=== PATIENT | female | born 1955 | race Caucasian/White ===

== ENCOUNTER 2020-05-31 15:18 | Inpatient (IN) | payer OTHER ==
[~2020-05-31] VITALS: Ht 157.4 cm; Wt 107.2 kg
[2020-05-31] MEDS ORDERED: ACETAMINOPHEN 500 MG TAB (TYLENOL) ONE (15:40)
[2020-05-31] MEDS ORDERED: IBUPROFEN 800 MG (MOTRIN) TAB PO ONE ×2 (15:40→15:45)
[2020-05-31] MEDS ORDERED: ACETAMINOPHEN 500 MG TAB (TYLENOL) PO ONE (15:45)
[2020-05-31 15:48] LABS: BASOPHILS % (AUTO) 0 % (0-10); EOSINOPHILS % (AUTO) 0 % (0-10); HEMATOCRIT 42 % (35-52); HEMOGLOBIN 14.1 g/dL (11.5-16.0); LYMPHOCYTES # (AUTO) 1.2 10^3/uL (1.0-4.0); LYMPHOCYTES % (AUTO) 29 % (12-44); MEAN CORPUSCULAR HEMOGLOBIN 31 pg (25-34); MEAN CORPUSCULAR HGB CONC 34 g/dL (32-36); MEAN CORPUSCULAR VOLUME 90 fL (80-99); MEAN PLATELET VOLUME 10.3 fL (9.0-12.2); MONOCYTES # (AUTO) 0.6 10^3/uL (0.0-1.0); MONOCYTES % (AUTO) 13 % (0-12); NEUTROPHILS # (AUTO) 2.4 10^3/uL (1.8-7.8); NEUTROPHILS % (AUTO) 57 % (42-75); PLATELET COUNT 148 10^3/uL (130-400); WHITE BLOOD COUNT 4.1 10^3/uL (4.3-11.0)
--- NOTE | 2020-05-31 15:48 | ED General ---
General Stated Complaint: COVID + SOA/FEVER Source of Information: Patient Exam Limitations: No Limitations History of Present Illness Date Seen by Provider: May 31, 2020 Time Seen by Provider: 15:45 Initial Comments To ER with reports of being feverish, short of breath and positive for Covid. She became symptomatic on , tested positive the day after . She is actually from [place], she is here visiting for [place]. On arrival oxygen saturation 89% on room air, does not wear oxygen at home, states that her oxygen at home measured by her own pulse oximeter was as low as 83%. Timing/Duration: 3-4 Days Severity: Moderate Associated Systoms: Cough, Fever/Chills, Weakness Allergies and Home Medications Allergies Coded Allergies: Penicillins (Verified Allergy, Unknown, 05/31/20) atorvastatin (Verified Allergy, Unknown, 05/31/20) metformin (Verified Allergy, Unknown, 05/31/20) sulfamethoxazole (Verified Allergy, Unknown, 05/31/20) trimethoprim (Verified Allergy, Unknown, 05/31/20) Patient Home Medication List Home Medication List Reviewed: Yes Review of Systems Review of Systems Constitutional: see HPI EENTM: see HPI Respiratory: see HPI, dyspnea on exertion, short of breath Cardiovascular: no symptoms reported Genitourinary: no symptoms reported Musculoskeletal: no symptoms reported Skin: no symptoms reported Psychiatric/Neurological: No Symptoms Reported Hematologic/Lymphatic: No Symptoms Reported Physical Exam Vital Signs Vital Signs - First Documented 05/31/20 15:25 Temp 39.2 Pulse 104 Resp 24 B/P (MAP) 183/85 (117) Pulse Ox 89 O2 Delivery Nasal Cannula O2 Flow Rate 2.00 Capillary Refill : Height, Weight, BMI Height: '" Weight: lbs. oz. kg; BMI Method: General Appearance: No Apparent Distress, WD/WN, Obese (alert very pleasant. 94% on 1 liter. ) Eyes: Bilateral Eye Normal Inspection, Bilateral Eye PERRL, Bilateral Eye EOMI Neck: Full Range of Motion, Normal Inspection Respiratory: Normal Breath Sounds, No Accessory Muscle Use, No Respiratory Distress Cardiovascular: Regular Rate, Rhythm, Normal Peripheral Pulses Gastrointestinal: Normal Bowel Sounds, Non Tender, Soft Extremity: Normal Capillary Refill, Normal Inspection Neurologic/Psychiatric: Alert, Oriented x3 Skin: Normal Color, Warm/Dry Progress/Results/Core Measures Suspected Sepsis SIRS Temperature: Pulse: Respiratory Rate: Laboratory Tests 05/31/20 15:40: White Blood Count 4.1L Blood Pressure / Mean: Laboratory Tests 05/31/20 15:40: Creatinine 1.00, Platelet Count 148, Total Bilirubin 0.3 Results/Orders Lab Results Laboratory Tests Test 05/31/20 15:40 Range/Units White Blood Count 4.1 L 4.3-11.0 10^3/uL Red Blood Count 4.61 3.80-5.11 10^6/uL Hemoglobin 14.1 11.5-16.0 g/dL Hematocrit 42 35-52 % Mean Corpuscular Volume 90 80-99 fL Mean Corpuscular Hemoglobin 31 25-34 pg Mean Corpuscular Hemoglobin Concent 34 32-36 g/dL Red Cell Distribution Width 12.3 10.0-14.5 % Platelet Count 148 130-400 10^3/uL Mean Platelet Volume 10.3 9.0-12.2 fL Immature Granulocyte % (Auto) 0 % Neutrophils (%) (Auto) 57 42-75 % Lymphocytes (%) (Auto) 29 12-44 % Monocytes (%) (Auto) 13 H 0-12 % Eosinophils (%) (Auto) 0 0-10 % Basophils (%) (Auto) 0 0-10 % Neutrophils # (Auto) 2.4 1.8-7.8 10^3/uL Lymphocytes # (Auto) 1.2 1.0-4.0 10^3/uL Monocytes # (Auto) 0.6 0.0-1.0 10^3/uL Eosinophils # (Auto) 0.0 0.0-0.3 10^3/uL Basophils # (Auto) 0.0 0.0-0.1 10^3/uL Immature Granulocyte # (Auto) 0.0 0.0-0.1 10^3/uL D-Dimer 1.29 H 0.00-0.49 UG/ML Sodium Level 134 L 135-145 MMOL/L Potassium Level 3.7 3.6-5.0 MMOL/L Chloride Level 98 98-107 MMOL/L Carbon Dioxide Level 26 21-32 MMOL/L Anion Gap 10 5-14 MMOL/L Blood Urea Nitrogen 13 7-18 MG/DL Creatinine 1.00 0.60-1.30 MG/DL Estimat Glomerular Filtration Rate 56 BUN/Creatinine Ratio 13 Glucose Level 96 70-105 MG/DL Calcium Level 8.7 8.5-10.1 MG/DL Corrected Calcium 8.7 8.5-10.1 MG/DL Total Bilirubin 0.3 0.1-1.0 MG/DL Aspartate Amino Transf (AST/SGOT) 41 H 5-34 U/L Alanine Aminotransferase (ALT/SGPT) 39 0-55 U/L Alkaline Phosphatase 101 40-136 U/L C-Reactive Protein High Sensitivity 2.77 H 0.00-0.50 MG/DL Total Protein 7.1 6.4-8.2 GM/DL Albumin 4.0 3.2-4.5 GM/DL Procalcitonin 0.04 <0.10 NG/ML My Orders Orders - DAVID HARDIN APRN Cbc With Automated Diff (05/31/20 15:41) Comprehensive Metabolic Panel (05/31/20 15:41) Procalcitonin (Pct) (05/31/20 15:41) Hs C Reactive Protein (05/31/20 15:41) Fibrin Degradation Products (05/31/20 15:41) Chest 1 View, Ap/Pa Only (05/31/20 15:41) Ed Iv/Invasive Line Start (05/31/20 15:41) Ibuprofen Tablet (Motrin Tablet) (05/31/20 15:45) Acetaminophen Tablet (Tylenol Tablet) (05/31/20 15:45) Ibuprofen Tablet (Motrin Tablet) (05/31/20 15:40) Acetaminophen Tablet (Tylenol Tablet) (05/31/20 15:40) Ct Angio Chest W (05/31/20 16:23) Iohexol Injection (Omnipaque 350 Mg/Ml 1 (05/31/20 17:00) Received Contrast (Hold Metformin- Contr (05/31/20 17:00) Ns (Ivpb) (Sodium Chloride 0.9% Ivpb Bag (05/31/20 17:00) Medications Given in ED Current Medications Medications Dose Ordered Sig/Carol Route Start Time Stop Time Status Last Admin Dose Admin Acetaminophen 1,000 mg ONCE ONCE PO 05/31/20 15:45 05/31/20 15:46 DC 05/31/20 15:48 1,000 MG Ibuprofen 800 mg ONCE ONCE PO 05/31/20 15:45 05/31/20 15:46 DC 05/31/20 15:49 800 MG Vital Signs/I&O 05/31/20 05/31/20 05/31/20 05/31/20 15:25 15:25 17:03 17:39 Temp 39.2 36.4 Pulse 104 90 85 Resp 24 24 20 B/P (MAP) 183/85 (117) 137/62 (117) 133/64 Pulse Ox 89 95 95 O2 Delivery Nasal Cannula Room Air Nasal Cannula Nasal Cannula O2 Flow Rate 2.00 2.00 2.00 05/31/20 05/31/20 05/31/20 18:03 19:41 20:00 Temp 36.5 Pulse 76 Resp 16 B/P (MAP) 127/62 (83) Pulse Ox 95 93 93 O2 Delivery Nasal Cannula Nasal Cannula Nasal Cannula O2 Flow Rate 2.00 2.00 2.00 Capillary Refill : Diagnostic Imaging Diagonstic Imaging: Xray Plain Films/CT/US/NM/MRI: chest Comments NAME: SWAPNA SEBASTIAN [facility] REC#: [id number] PT STATUS: REG ER : 1955 PHYSICIAN: DAVID HARDIN APRN ADMIT DATE: 05/31/20/ER Signed Date of Exam:05/31/20 CHEST 1 VIEW, AP/PA ONLY EXAMINATION: Chest 1 view. HISTORY: SOA, Covid-19. COMPARISON: None available. FINDINGS: Heart size and pulmonary vasculature are upper limits of normal. Low lung volumes with patchy interstitial opacities seen throughout both lungs. The left costophrenic angle is obscured. No pneumothorax. IMPRESSION: 1. Low lung volumes with patchy interstitial opacities throughout both lungs, compatible with pulmonary edema or atypical infection and history of Covid-19. 2. Obscured left costophrenic angle which could be secondary to consolidation versus pleural effusion. Dictated by: Dictated on workstation # [id number] Dict: 05/31/201602 Trans: 05/31/201607 [facility] [id number] Interpreted by: CLARENCE LEON DO Electronically signed by: CLARENCE LEON DO 05/31/208 Departure Impression Primary Impression: COVID-19 Disposition: 01 HOME, SELF-CARE Condition: Stable Admissions Decision to Admit Reason: Admit from ER (General) Decision to Admit/Date: May 31, 2020 Time/Decision to Admit Time: 17:00 DAVID HARDIN APRN May 31, 2020 15:48
[2020-05-31 15:58] LABS: POTASSIUM 3.7 MMOL/L (3.6-5.0)
[2020-05-31 15:59] LABS: CALCIUM 8.7 MG/DL (8.5-10.1)
[2020-05-31 16:01] LABS: TOTAL PROTEIN 7.1 GM/DL (6.4-8.2)
[2020-05-31 16:02] LABS: BILIRUBIN,TOTAL 0.3 MG/DL (0.1-1.0)
--- NOTE | 2020-05-31 16:08 | Diagnostic Imaging Report ---
EXAMINATION: Chest 1 view. HISTORY: SOA, Covid-19. COMPARISON: None available. FINDINGS: Heart size and pulmonary vasculature are upper limits of normal. Low lung volumes with patchy interstitial opacities seen throughout both lungs. The left costophrenic angle is obscured. No pneumothorax. IMPRESSION: 1. Low lung volumes with patchy interstitial opacities throughout both lungs, compatible with pulmonary edema or atypical infection and history of Covid-19. 2. Obscured left costophrenic angle which could be secondary to consolidation versus pleural effusion. Dictated by: Dictated on workstation # [id number]
[2020-05-31] MEDS ORDERED: IOHEXOL 350 MG/ML 100 ML (OMNIPAQUE 350) VIAL IV ONE (17:00)
[2020-05-31] MEDS ORDERED: HOLD METFORMIN - RECEIVED CONTRAST 20 ML VIAL IV SCH (17:00)
[2020-05-31] MEDS ORDERED: NS 100 ML (IVPB) BAG IV ONE (17:00)
--- NOTE | 2020-05-31 17:09 | Diagnostic Imaging Report ---
Clinical indication: Patient has had COVID since 05/25/2020. Patient continues to have fever, low oxygen saturations, is and occasional cough. Exam: CT angiogram of the chest performed with 60 cc Omnipaque 350 IV contrast. Coronal and oblique MIP images of the vasculature were created to better evaluate anatomy. Auto Exposure Controls were utilized during the CT exam to meet ALARA standards for radiation dose reduction. Comparison: Chest x-ray dated 05/31/2020. Findings: There are patchy areas of airspace consolidation scattered throughout both lungs, with the lung bases affected most. There are segmental and subsegmental areas of consolidation with some volume loss involving the lingula, posterior left lung base, and right upper lobe. There is no pleural effusion or pneumothorax. There are mediastinal and bilateral hilar lymph nodes seen which are mildly prominent. Marker lymph node in the precarinal region measures 11 mm x 21 mm. There is no significant hilar lymphadenopathy. There is dense contrast within the left innominate vein and superior vena cava which causes streak artifact which obscures portions of the aortic arch and pulmonary arteries. The thoracic aorta shows no aneurysmal dilation or dissection. The right and left main pulmonary arteries show no evidence of embolism, as visualized. The gallbladder is surgically resected. The remainder of the visualized upper abdominal structures are unremarkable. Hiatal hernia is seen. The extra thoracic soft tissue shows no significant abnormality. There are degenerative spurs involving the thoracic spine. IMPRESSION: 1: There is no evidence of pulmonary embolism, thoracic aortic aneurysm, or thoracic aortic dissection. 2: There are patchy areas of consolidation, and segmental and subsegmental areas of lung consolidation and volume loss seen throughout both lungs concerning for infectious or inflammatory process. COVID infection should be considered. 3: There is mediastinal and hilar lymphadenopathy, likely reactive. Dictated by: Dictated on workstation # [id number]
--- NOTE | 2020-05-31 17:18 | History & Physical-Hospitalist ---
History of Present Illness HPI/Chief Complaint Pt is a 65yoCF with a PMH of HTN and diet controlled DMII who presented to the ER due to hypoxia. She states she became symptomatic with COVID on 05/25 after exposure to her who was positive. She tested positive on 05/26. She is here from out of town visiting family. She had been doing ok at home and monitoring her oxygen saturation and dropped to 83%. Her daughter called a friend who is a nurse and advised her to seek evaluation in the ER. She was 89% on arrival here while being wheeled in. She states she has loss of her taste and smell and had fevers and a cough. She denies any nausea, vomiting, or diarrhea. Source: patient Exam Limitations: no limitations Date Seen 05/31/20 Time Seen by a Provider: 17:14 Attending Physician Julius Hawley MD PCP Referring Physician Date of Admission May 31, 2020 at 16:28 Home Medications & Allergies Home Medications Reviewed patient Home Medication Reconciliation performed by pharmacy medication reconciliations ekg/ecg technician and/or nursing. Patients Allergies have been reviewed. Allergies Allergies Coded Allergies Penicillins (Verified Allergy, Unknown, 05/31/20) atorvastatin (Verified Allergy, Unknown, 05/31/20) metformin (Verified Allergy, Unknown, 05/31/20) sulfamethoxazole (Verified Allergy, Unknown, 05/31/20) trimethoprim (Verified Allergy, Unknown, 05/31/20) Past Mnyekbd-Opmblx-Uthtqk Hx Past Med/Social Hx: Reviewed Nursing Past Med/Soc Hx Patient Social History Marrital Status: Alcohol Use: Rarely Uses Recreational Drug Use: No Smoking Status: Never a Smoker Recent Foreign Travel: No Contact w/other who traveled: No Recent Hopitalizations: No Recent Infectious Disease Expo: No Immunizations Up To Date Date of Influenza Vaccine: Mar 01, 2020 Seasonal Allergies Seasonal Allergies: No Past Medical History Surgeries: Adenoidectomy, Gallbladder, Orthopedic, Tonsillectomy, Tubal Ligation Endocrine: Hyperthyroidism Family History Reviewed Nursing Family Hx No Pertinent Family Hx Review of Systems Constitutional: fever, malaise EENTM: see HPI Respiratory: see HPI Cardiovascular: No chest pain, No edema, No palpitations Gastrointestinal: see HPI Genitourinary: no symptoms reported Musculoskeletal: no symptoms reported Skin: no symptoms reported Psychiatric/Neurological: No Symptoms Reported Physical Exam Physical Exam Vital Signs Vital Signs - First Documented 05/31/20 15:25 Temp 39.2 Pulse 104 Resp 24 B/P (MAP) 183/85 (117) Pulse Ox 89 O2 Delivery Nasal Cannula O2 Flow Rate 2.00 Capillary Refill : Less Than 3 Seconds Height, Weight, BMI Height: '" Weight: lbs. oz. kg; 41.00 BMI Method: General Appearance: No Apparent Distress, WD/WN HEENT: PERRL/EOMI, Moist Mucous Membranes; No Scleral Icterus (L), No Scleral Icterus (R) Neck: Normal Inspection, Supple; No Thyromegaly Respiratory: No Accessory Muscle Use; No Crackles; Decreased Breath Sounds; No Rhonci, No Wheezing; Other (on 1lpm NC) Cardiovascular: Regular Rate, Rhythm, No Murmur Gastrointestinal: Normal Bowel Sounds, Non Tender, Soft Extremity: Normal Capillary Refill, No Calf Tenderness, No Pedal Edema Neurologic/Psychiatric: Alert, Oriented x3, Normal Mood/Affect Skin: Normal Color, Warm/Dry Results Results/Procedures Labs Laboratory Tests 05/31/20 15:40 Patient resulted labs reviewed. Imaging: Reviewed Imaging Report [facility] [place] [place] NAME: SWAPNA SEBASTIAN [facility] REC#: [id number] PT STATUS: REG ER : 1955 PHYSICIAN: DAVID HARDIN APRN ADMIT DATE: 05/31/20/ER Signed Date of Exam:05/31/20 CHEST 1 VIEW, AP/PA ONLY EXAMINATION: Chest 1 view. HISTORY: SOA, Covid-19. COMPARISON: None available. FINDINGS: Heart size and pulmonary vasculature are upper limits of normal. Low lung volumes with patchy interstitial opacities seen throughout both lungs. The left costophrenic angle is obscured. No pneumothorax. IMPRESSION: 1. Low lung volumes with patchy interstitial opacities throughout both lungs, compatible with pulmonary edema or atypical infection and history of Covid-19. 2. Obscured left costophrenic angle which could be secondary to consolidation versus pleural effusion. Dictated by: Dictated on workstation # [id number] Dict: 05/31/20 1603 Trans: 05/31/20 1608 [facility] [id number] Interpreted by: CLARENCE LEON DO Electronically signed by: CLARENCE LEON DO 05/31/20 1608 [facility] [place], [place] NAME: SWAPNA SEBASTIAN [facility] REC#: [id number] PT STATUS: ADM IN : 1955 PHYSICIAN: DAVID HARDIN APRN ADMIT DATE: 05/31/20 Signed Date of Exam:05/31/20 CT ANGIO CHEST W Clinical indication: Patient has had COVID since 05/25/2020. Patient continues to have fever, low oxygen saturations, is and occasional cough. Exam: CT angiogram of the chest performed with 60 cc Omnipaque 350 IV contrast. Coronal and oblique MIP images of the vasculature were created to better evaluate anatomy. Auto Exposure Controls were utilized during the CT exam to meet ALARA standards for radiation dose reduction. Comparison: Chest x-ray dated 05/31/2020. Findings: There are patchy areas of airspace consolidation scattered throughout both lungs, with the lung bases affected most. There are segmental and subsegmental areas of consolidation with some volume loss involving the lingula, posterior left lung base, and right upper lobe. There is no pleural effusion or pneumothorax. There are mediastinal and bilateral hilar lymph nodes seen which are mildly prominent. Marker lymph node in the precarinal region measures 11 mm x 21 mm. There is no significant hilar lymphadenopathy. There is dense contrast within the left innominate vein and superior vena cava which causes streak artifact which obscures portions of the aortic arch and pulmonary arteries. The thoracic aorta shows no aneurysmal dilation or dissection. The right and left main pulmonary arteries show no evidence of embolism, as visualized. The gallbladder is surgically resected. The remainder of the visualized upper abdominal structures are unremarkable. Hiatal hernia is seen. The extra thoracic soft tissue shows no significant abnormality. There are degenerative spurs involving the thoracic spine. IMPRESSION: 1: There is no evidence of pulmonary embolism, thoracic aortic aneurysm, or thoracic aortic dissection. 2: There are patchy areas of consolidation, and segmental and subsegmental areas of lung consolidation and volume loss seen throughout both lungs concerning for infectious or inflammatory process. COVID infection should be considered. 3: There is mediastinal and hilar lymphadenopathy, likely reactive. Dictated by: Dictated on workstation # [id number] Dict: 05/31/201656 Trans: 05/31/201705 [id number] Interpreted by: MARK DEVLIN MD Electronically signed by: MARK DEVLIN MD 05/31/201705 Assessment/Plan Admission Diagnosis Acute hypoxic respiratory failure due to COVID19 Admission Status: Inpatient Order (span 2 midnights) Reason for Inpatient Admission: see below Assessment and Plan Acute hypoxic respiratory failure due to COVID19 Viral pneumonia On day 6 of symptoms Discussed natural course of illness and likelihood of getting worse before she gets better as is on day 6 Start on decadron and remdesivir Convalescent plasma ordered, awaiting arrival, ER discussed EUA status with patient who consented Lovenox MAT IS HTN Resume home meds when available Morbid obesity No acute needs but clinically significant DVt ppx: See above Diagnosis/Problems Diagnosis/Problems (1) Acute respiratory failure Status: Acute Qualifiers: Respiratory failure complication: hypoxia Qualified Codes: J96.01 - Acute respiratory failure with hypoxia (2) COVID-19 Status: Acute (3) Hypertension Qualifiers: Hypertension type: essential hypertension Qualified Codes: I10 - Essential (primary) hypertension (4) Obesity Status: Chronic Qualifiers: Obesity classification: adult class 3 (BMI >= 40) Serious obesity comorbidity presence: without serious comorbidity Body mass index: BMI 40.0- 44.9 JULIUS HAWLEY MD May 31, 2020 17:18
[2020-05-31 17:39] VITALS: BP 133/64
[2020-05-31] MEDS ORDERED: ONDANSETRON 4 MG/2 ML (SDV) Z0FRAN IV PRN (18:00)
[2020-05-31] MEDS ORDERED: REMDESIVIR 200 MG/NS 250 ML IVPB IV ONE ×2 (18:00)
[2020-05-31] MEDS ORDERED: IBUPROFEN 600 MG (MOTRIN) TAB PO PRN (18:00)
[2020-05-31] MEDS: ENOXAPARIN 40 MG/0.4 ML (LOVENOX) SYR SC SCH (18:50)
[2020-05-31 19:41] VITALS: BP 127/62
[2020-05-31 21:05] VITALS: BP 127/62
[2020-05-31] MEDS ORDERED: BENZONATATE 100 MG (TESSALON) CAPSULE PO PRN (21:15)
[2020-05-31] MEDS ORDERED: MELATONIN 3 MG TABLET PO PRN (21:15)
[2020-05-31] MEDS ORDERED: guaiFENesin/DM (ROBITUSSIN DM) 10 ML UDC PO PRN (21:15)
[2020-05-31] MEDS ORDERED: MILK OF MAGNESIA 400 MG/5 ML 30 ML UDC PO PRN (21:15)
[2020-05-31] MEDS ORDERED: ANTACID SUSP 30 ML UDC (MYLANTA) PO PRN (21:15)
[2020-05-31] MEDS ORDERED: RT-ALBUTEROL INHALER HFA (VENTOLIN HFA) 18 GM IH PRN (21:45)
[2020-05-31 23:24] VITALS: BP 149/66
[2020-06-01] MEDS: RT-ALBUTEROL INHALER HFA (VENTOLIN HFA) 18 GM IH SCH ×4 (05:58→21:00)
[2020-06-01] MEDS: ENOXAPARIN 40 MG/0.4 ML (LOVENOX) SYR SC SCH ×2 (06:17→17:37)
[2020-06-01 08:12] VITALS: BP 138/65
[2020-06-01] MEDS: ACETAMINOPHEN 325 MG TABLET PO PRN ×2 (08:40→16:25)
[2020-06-01 09:48] LABS: BASOPHILS % (AUTO) 0 % (0-10); EOSINOPHILS % (AUTO) 0 % (0-10); HEMATOCRIT 40 % (35-52); HEMOGLOBIN 13.5 g/dL (11.5-16.0); LYMPHOCYTES % (AUTO) 30 % (12-44); MEAN CORPUSCULAR HEMOGLOBIN 30 pg (25-34); MEAN CORPUSCULAR HGB CONC 34 g/dL (32-36); MEAN CORPUSCULAR VOLUME 89 fL (80-99); MEAN PLATELET VOLUME 11.1 fL (9.0-12.2); MONOCYTES # (AUTO) 0.3 10^3/uL (0.0-1.0); MONOCYTES % (AUTO) 8 % (0-12); NEUTROPHILS % (AUTO) 62 % (42-75); PLATELET COUNT 146 10^3/uL (130-400); WHITE BLOOD COUNT 3.3 10^3/uL (4.3-11.0)
[2020-06-01 10:01] LABS: ALBUMIN 3.6 GM/DL (3.2-4.5)
[2020-06-01 10:02] LABS: CHLORIDE 98 MMOL/L (98-107); POTASSIUM 3.6 MMOL/L (3.6-5.0); SODIUM 130 MMOL/L (135-145)
[2020-06-01 10:03] LABS: CALCIUM 8.3 MG/DL (8.5-10.1)
[2020-06-01 10:04] LABS: GLUCOSE 147 MG/DL (70-105); TOTAL PROTEIN 6.4 GM/DL (6.4-8.2)
[2020-06-01 10:05] LABS: CARBON DIOXIDE 22 MMOL/L (21-32)
[2020-06-01 10:06] LABS: BILIRUBIN,TOTAL 0.3 MG/DL (0.1-1.0)
[2020-06-01 10:07] LABS: ALKALINE PHOSPHATASE 90 U/L (40-136)
[2020-06-01 10:08] LABS: CREATININE SERUM 0.83 MG/DL (0.60-1.30); GFR ESTIMATED > 60
[2020-06-01 10:09] LABS: BUN/CREATININE RATIO 14
[2020-06-01 10:10] LABS: ALANINE AMINOTRANSFERASE 36 U/L (0-55)
[2020-06-01 11:59] VITALS: BP 117/56
--- NOTE | 2020-06-01 12:37 | Progress Note - Hospitalist ---
Subjective HPI/CC On Admission Date Seen by Provider: Jun 01, 2020 Time Seen by Provider: 12:29 Pt is a 65yoCF with a PMH of HTN and diet controlled DMII who presented to the ER due to hypoxia. She states she became symptomatic with COVID on 05/25 after exposure to her who was positive. She tested positive on 05/26. She is h ere from out of town visiting family. She had been doing ok at home and monitoring her oxygen saturation and dropped to 83%. Her daughter called a friend who is a nurse and advised her to seek evaluation in the ER. She was 89% on arrival here while being wheeled in. She states she has loss of her taste and smell and had fevers and a cough. She denies any nausea, vomiting, or diarrhea. Subjective/Events-last exam Pt reports feeling better today. Still fevering at time but overall better. Off oxygen today. Objective Exam Vital Signs Vital Signs Date Time Temp Pulse Resp B/P (MAP) Pulse Ox O2 Delivery O2 Flow Rate FiO2 06/01/20 11:59 37.0 88 20 117/56 (76) 93 Room Air 06/01/20 08:00 2.00 Capillary Refill : Less Than 3 Seconds General Appearance: No Apparent Distress, WD/WN Respiratory: Lungs Clear, No Accessory Muscle Use Cardiovascular: Regular Rate, Rhythm, No Murmur Gastrointestinal: Normal Bowel Sounds, Non Tender, Soft Neurologic/Psychiatric: Alert, Oriented x3, Normal Mood/Affect Results/Procedures Lab Laboratory Tests 05/31/20 15:40 06/01/20 09:28 Patient resulted labs reviewed. Imaging: Reviewed Imaging Report Assessment/Plan Assessment and Plan Assess & Plan/Chief Complaint Acute hypoxic respiratory failure due to COVID19 Viral pneumonia Continue decadron and remdesivir Convalescent plasma ordered, awaiting arrival, ER discussed EUA status with patient who consented Lovenox MAT IS HTN Resume home meds when available Hypothyroidism Resume synthroid Morbid obesity No acute needs but clinically significant DVt ppx: See above Diagnosis/Problems Diagnosis/Problems (1) Acute respiratory failure Status: Acute Qualifiers: Respiratory failure complication: hypoxia Qualified Codes: J96.01 - Acute respiratory failure with hypoxia (2) COVID-19 Status: Acute (3) Hypertension Qualifiers: Hypertension type: essential hypertension Qualified Codes: I10 - Essential (primary) hypertension (4) Obesity Status: Chronic Qualifiers: Obesity classification: adult class 3 (BMI >= 40) Serious obesity comorbidity presence: without serious comorbidity Body mass index: BMI 40.0- 44.9 Clinical Quality Measures DVT/VTE Risk/Contraindication: Risk Factor Score Per Nursin RFS Level Per Nursing on Admit: 4+=Very High JULIUS ESCOTO MD Jun 01, 2020 12:37
[2020-06-01] MEDS: dexAMETHasone 6 MG TAB (DECADRON) PO SCH (16:25)
[2020-06-01] MEDS: REMDESIVIR 100 MG/NS 250 ML IVPB IV SCH ×2 (16:25)
[2020-06-01 16:29] VITALS: BP 124/60
[2020-06-01 23:46] VITALS: BP 120/60
[2020-06-02] MEDS: RT-ALBUTEROL INHALER HFA (VENTOLIN HFA) 18 GM IH SCH ×4 (03:36→18:19)
[2020-06-02] MEDS: LEVOTHYROXINE 125 MCG (LEVOTHROID) TABLET PO SCH (05:45)
[2020-06-02] MEDS: ENOXAPARIN 40 MG/0.4 ML (LOVENOX) SYR SC SCH ×2 (05:45→17:20)
[2020-06-02 06:45] LABS: HEMOGLOBIN 14.1 g/dL (11.5-16.0); MEAN PLATELET VOLUME 11.1 fL (9.0-12.2); WHITE BLOOD COUNT 1.9 10^3/uL (4.3-11.0)
[2020-06-02 06:52] LABS: ALBUMIN 3.9 GM/DL (3.2-4.5)
[2020-06-02 06:53] LABS: CHLORIDE 101 MMOL/L (98-107); POTASSIUM 3.5 MMOL/L (3.6-5.0); SODIUM 134 MMOL/L (135-145)
[2020-06-02 06:54] LABS: CALCIUM 8.8 MG/DL (8.5-10.1)
[2020-06-02 06:55] LABS: GLUCOSE 187 MG/DL (70-105)
[2020-06-02 06:56] LABS: CARBON DIOXIDE 21 MMOL/L (21-32)
[2020-06-02 06:57] LABS: BILIRUBIN,TOTAL 0.3 MG/DL (0.1-1.0)
[2020-06-02 06:58] LABS: ALKALINE PHOSPHATASE 90 U/L (40-136)
[2020-06-02 06:59] LABS: CREATININE SERUM 0.87 MG/DL (0.60-1.30); GFR ESTIMATED > 60
[2020-06-02 07:00] LABS: BUN/CREATININE RATIO 15
[2020-06-02 07:01] LABS: ALANINE AMINOTRANSFERASE 33 U/L (0-55)
[2020-06-02 07:30] VITALS: BP 122/56
[2020-06-02] MEDS: dexAMETHasone 6 MG TAB (DECADRON) PO SCH (08:05)
[2020-06-02] MEDS ORDERED: PROMETHAZINE/ CODEINE SYRUP 5 ML UDC PO PRN (11:00)
[2020-06-02] MEDS: inSUlin ASPART (NovoLOG) 1 UNIT/0.01 ML (CHARGE PER UNIT) SC SCH ×3 (11:40→20:33)
--- NOTE | 2020-06-02 12:40 | Progress Note - Hospitalist ---
Subjective HPI/CC On Admission Date Seen by Provider: Jun 02, 2020 Time Seen by Provider: 12:36 Pt is a 65yoCF with a PMH of HTN and diet controlled DMII who presented to the ER due to hypoxia. She states she became symptomatic with COVID on 05/25 after exposure to her who was positive. She tested positive on 05/26. She is h ere from out of town visiting family. She had been doing ok at home and monitoring her oxygen saturation and dropped to 83%. Her daughter called a friend who is a nurse and advised her to seek evaluation in the ER. She was 89% on arrival here while being wheeled in. She states she has loss of her taste and smell and had fevers and a cough. She denies any nausea, vomiting, or diarrhea. Subjective/Events-last exam Pt reports feeling more short of breath this morning since going to the bathroom without oxygen on. Only other concern was about her blood sugars being elevated and getting orange juice on her breakfast tray. Objective Exam Vital Signs Vital Signs Date Time Temp Pulse Resp B/P (MAP) Pulse Ox O2 Delivery O2 Flow Rate FiO2 06/02/20 08:21 93 Nasal Cannula 2.00 06/02/20 07:30 36.5 75 18 122/56 (78) Capillary Refill : Less Than 3 Seconds General Appearance: No Apparent Distress, Obese Respiratory: Lungs Clear, No Accessory Muscle Use, Other (on 2lpm) Cardiovascular: Regular Rate, Rhythm, No Murmur Neurologic/Psychiatric: Alert, Oriented x3 Results/Procedures Lab Laboratory Tests 06/02/20 06:07 Patient resulted labs reviewed. Imaging: Reviewed Imaging Report Assessment/Plan Assessment and Plan Assess & Plan/Chief Complaint Acute hypoxic respiratory failure due to COVID19 Viral pneumonia Continue decadron and remdesivir Convalescent plasma ordered, awaiting arrival still Lovenox MAT IS prn cough syrup available Advised not to take oxygen off again HTN BP well controlled Hypothyroidism Cont synthroid Morbid obesity No acute needs but clinically significant DVt ppx: See above Diagnosis/Problems Diagnosis/Problems (1) Acute respiratory failure Status: Acute Qualifiers: Respiratory failure complication: hypoxia Qualified Codes: J96.01 - Acute respiratory failure with hypoxia (2) COVID-19 Status: Acute (3) Hypertension Qualifiers: Hypertension type: essential hypertension Qualified Codes: I10 - Essential (primary) hypertension (4) Obesity Status: Chronic Qualifiers: Obesity classification: adult class 3 (BMI >= 40) Serious obesity comorbidity presence: without serious comorbidity Body mass index: BMI 40.0- 44.9 Clinical Quality Measures DVT/VTE Risk/Contraindication: Risk Factor Score Per Nursin RFS Level Per Nursing on Admit: 4+=Very High JULIUS ESCOTO MD Jun 02, 2020 12:40
[2020-06-02 17:00] VITALS: BP 132/62
[2020-06-02] MEDS: REMDESIVIR 100 MG/NS 250 ML IVPB IV SCH ×2 (17:19)
[2020-06-03 00:19] VITALS: BP 136/74
[2020-06-03] MEDS: RT-ALBUTEROL INHALER HFA (VENTOLIN HFA) 18 GM IH SCH ×4 (01:57→21:02)
[2020-06-03] MEDS: inSUlin ASPART (NovoLOG) 1 UNIT/0.01 ML (CHARGE PER UNIT) SC SCH ×4 (05:14→20:25)
[2020-06-03] MEDS: ENOXAPARIN 40 MG/0.4 ML (LOVENOX) SYR SC SCH ×2 (06:13→17:07)
[2020-06-03] MEDS: LEVOTHYROXINE 125 MCG (LEVOTHROID) TABLET PO SCH (06:13)
[2020-06-03] MEDS ORDERED: CHLORASEPTIC SPRAY 177 ML LIQUID MC PRN (07:45)
[2020-06-03 07:59] LABS: HEMOGLOBIN 13.9 g/dL (11.5-16.0); WHITE BLOOD COUNT 6.8 10^3/uL (4.3-11.0)
[2020-06-03 08:03] LABS: ALBUMIN 3.7 GM/DL (3.2-4.5)
[2020-06-03 08:04] LABS: CHLORIDE 103 MMOL/L (98-107); SODIUM 138 MMOL/L (135-145)
[2020-06-03 08:05] LABS: CALCIUM 8.9 MG/DL (8.5-10.1)
[2020-06-03 08:06] LABS: GLUCOSE 108 MG/DL (70-105); TOTAL PROTEIN 6.7 GM/DL (6.4-8.2)
[2020-06-03 08:07] LABS: CARBON DIOXIDE 25 MMOL/L (21-32)
[2020-06-03 08:08] LABS: BILIRUBIN,TOTAL 0.3 MG/DL (0.1-1.0)
[2020-06-03 08:09] LABS: ALKALINE PHOSPHATASE 77 U/L (40-136)
[2020-06-03 08:10] LABS: CREATININE SERUM 0.81 MG/DL (0.60-1.30); GFR ESTIMATED > 60
[2020-06-03 08:11] VITALS: BP 117/74
[2020-06-03 08:11] LABS: BUN/CREATININE RATIO 20
[2020-06-03 08:12] LABS: ALANINE AMINOTRANSFERASE 28 U/L (0-55)
[2020-06-03] MEDS: dexAMETHasone 6 MG TAB (DECADRON) PO SCH (08:14)
--- NOTE | 2020-06-03 08:32 | Progress Note - Hospitalist ---
Subjective HPI/CC On Admission Date Seen by Provider: Jun 03, 2020 Time Seen by Provider: 08:28 Pt is a 65yoCF with a PMH of HTN and diet controlled DMII who presented to the ER due to hypoxia. She states she became symptomatic with COVID on 05/25 after exposure to her who was positive. She tested positive on 05/26. She is h ere from out of town visiting family. She had been doing ok at home and monitoring her oxygen saturation and dropped to 83%. Her daughter called a friend who is a nurse and advised her to seek evaluation in the ER. She was 89% on arrival here while being wheeled in. She states she has loss of her taste and smell and had fevers and a cough. She denies any nausea, vomiting, or diarrhea. Subjective/Events-last exam Pt reports feeling ok today. Breathing about the same as yesterday, no worse. She was concerned about her remdesivir infusion last night and making sure she gets it all. I discussed this with her day RN and referred patient to retirement actuary for further concerns. Objective Exam Vital Signs Vital Signs Date Time Temp Pulse Resp B/P (MAP) Pulse Ox O2 Delivery O2 Flow Rate FiO2 06/03/20 08:11 36.9 75 18 117/74 (88) 92 Nasal Cannula 4.00 4.00 Capillary Refill : Less Than 3 Seconds General Appearance: No Apparent Distress, Obese Respiratory: Lungs Clear, No Accessory Muscle Use, Other (on 4lpm NC) Cardiovascular: Regular Rate, Rhythm, No Murmur Gastrointestinal: Normal Bowel Sounds, Non Tender, Soft Neurologic/Psychiatric: Alert, Oriented x3 Results/Procedures Lab Laboratory Tests 06/03/20 07:35 Patient resulted labs reviewed. Imaging: Reviewed Imaging Report Assessment/Plan Assessment and Plan Assess & Plan/Chief Complaint Acute hypoxic respiratory failure due to COVID19 Viral pneumonia Continue decadron and remdesivir Convalescent plasma ordered, awaiting arrival still Lovenox MAT IS prn cough syrup available Last fever was 06/01 HTN BP well controlled, trend Hypothyroidism Continue home synthroid Morbid obesity No acute needs but clinically significant DVt ppx: See above Diagnosis/Problems Diagnosis/Problems (1) Acute respiratory failure Status: Acute Qualifiers: Respiratory failure complication: hypoxia Qualified Codes: J96.01 - Acute respiratory failure with hypoxia (2) COVID-19 Status: Acute (3) Hypertension Qualifiers: Hypertension type: essential hypertension Qualified Codes: I10 - Essential (primary) hypertension (4) Obesity Status: Chronic Qualifiers: Obesity classification: adult class 3 (BMI >= 40) Serious obesity comorbidity presence: without serious comorbidity Body mass index: BMI 40.0- 44.9 Clinical Quality Measures DVT/VTE Risk/Contraindication: Risk Factor Score Per Nursin RFS Level Per Nursing on Admit: 4+=Very High JULIUS ESCOTO MD Jun 03, 2020 08:32
[2020-06-03 15:52] VITALS: BP 117/74
[2020-06-03] MEDS: REMDESIVIR 100 MG/NS 250 ML IVPB IV SCH ×2 (16:28)
[2020-06-03 16:43] VITALS: BP 131/62
[2020-06-03] MEDS: DOXYCYCLINE 100 MG (VIBRAMYCIN) TABLET PO SCH (17:06)
[2020-06-04] VITALS: BP 125/60
[2020-06-04] MEDS: RT-ALBUTEROL INHALER HFA (VENTOLIN HFA) 18 GM IH SCH ×4 (02:36→22:24)
[2020-06-04] MEDS: inSUlin ASPART (NovoLOG) 1 UNIT/0.01 ML (CHARGE PER UNIT) SC SCH ×4 (05:25→21:56)
[2020-06-04] MEDS: ENOXAPARIN 40 MG/0.4 ML (LOVENOX) SYR SC SCH ×2 (05:43→17:22)
[2020-06-04] MEDS: LEVOTHYROXINE 125 MCG (LEVOTHROID) TABLET PO SCH (05:43)
[2020-06-04 05:48] LABS: HEMOGLOBIN 13.8 g/dL (11.5-16.0); MEAN PLATELET VOLUME 11.2 fL (9.0-12.2); WHITE BLOOD COUNT 5.2 10^3/uL (4.3-11.0)
[2020-06-04 05:59] LABS: ALBUMIN 3.6 GM/DL (3.2-4.5); CHLORIDE 107 MMOL/L (98-107); SODIUM 140 MMOL/L (135-145)
[2020-06-04 06:00] LABS: CALCIUM 8.7 MG/DL (8.5-10.1)
[2020-06-04 06:01] LABS: GLUCOSE 102 MG/DL (70-105)
[2020-06-04 06:02] LABS: TOTAL PROTEIN 6.4 GM/DL (6.4-8.2)
[2020-06-04 06:03] LABS: BILIRUBIN,TOTAL 0.3 MG/DL (0.1-1.0); CARBON DIOXIDE 23 MMOL/L (21-32)
[2020-06-04 06:05] LABS: ALKALINE PHOSPHATASE 73 U/L (40-136); CREATININE SERUM 0.78 MG/DL (0.60-1.30); GFR ESTIMATED > 60
[2020-06-04 06:06] LABS: BUN/CREATININE RATIO 23
[2020-06-04 06:08] LABS: ALANINE AMINOTRANSFERASE 27 U/L (0-55)
[2020-06-04 08:00] VITALS: BP 142/62
[2020-06-04] MEDS: dexAMETHasone 6 MG TAB (DECADRON) PO SCH (08:46)
[2020-06-04] MEDS: DOXYCYCLINE 100 MG (VIBRAMYCIN) TABLET PO SCH ×2 (08:46→17:22)
[2020-06-04] MEDS ORDERED: OMG1KC PO (09:43)
[2020-06-04] MEDS ORDERED: PEG15DRO9 OU (09:43)
[2020-06-04] MEDS ORDERED: ALBU2.5V4 INH (09:43)
[2020-06-04] MEDS ORDERED: LEVO-131 PO (09:43)
[2020-06-04] MEDS ORDERED: CINN500C2 PO (09:43)
[2020-06-04] MEDS ORDERED: OMEP40CA27 PO (09:43)
[2020-06-04] MEDS ORDERED: MULT-974 PO (09:43)
[2020-06-04] MEDS ORDERED: CHOL1TAB4 PO (09:43)
[2020-06-04] MEDS ORDERED: DOXY100C2 PO (09:43)
[2020-06-04] MEDS ORDERED: CALC-823 PO (09:43)
--- NOTE | 2020-06-04 16:03 | Progress Note - Hospitalist ---
Subjective HPI/CC On Admission Date Seen by Provider: Jun 04, 2020 Time Seen by Provider: 10:45 Pt is a 65yoCF with a PMH of HTN and diet controlled DMII who presented to the ER due to hypoxia. She states she became symptomatic with COVID on 05/25 after exposure to her who was positive. She tested positive on 05/26. She is h ere from out of town visiting family. She had been doing ok at home and monitoring her oxygen saturation and dropped to 83%. Her daughter called a friend who is a nurse and advised her to seek evaluation in the ER. She was 89% on arrival here while being wheeled in. She states she has loss of her taste and smell and had fevers and a cough. She denies any nausea, vomiting, or diarrhea. Subjective/Events-last exam She is feeling better. She is not short of breath. She saw that of a cough. She denies any fevers. She has been eating and drinking. She has been up and moving around. Objective Exam Vital Signs Vital Signs Date Time Temp Pulse Resp B/P (MAP) Pulse Ox O2 Delivery O2 Flow Rate FiO2 06/04/20 15:37 90 Nasal Cannula 4.00 06/04/20 08:00 36.5 65 16 142/62 (88) 06/03/20 15:52 32 Capillary Refill : Less Than 3 Seconds General Appearance: No Apparent Distress, Obese Respiratory: Lungs Clear, Normal Breath Sounds, No Respiratory Distress Cardiovascular: Regular Rate, Rhythm, No Edema, No Murmur Gastrointestinal: Normal Bowel Sounds, Non Tender, Soft Extremity: Normal Inspection, Non Tender, No Pedal Edema Neurologic/Psychiatric: Alert, Oriented x3, No Motor/Sensory Deficits, Normal Mood/Affect Skin: Normal Color, Warm/Dry Results/Procedures Lab Laboratory Tests 06/04/20 05:21 Patient resulted labs reviewed. Imaging: Reviewed Imaging Report Assessment/Plan Assessment and Plan Assess & Plan/Chief Complaint Acute respiratory failure due to COVID-19 Pneumonia due to COVID-19 Continue decadron and remdesivir Convalescent plasma ordered, awaiting arrival still Lovenox MAT IS HTN BP well controlled, trend Hypothyroidism Continue Synthroid Morbid obesity Clinically significant, no acute management needs DVT prophylaxis: Lovenox Diagnosis/Problems Diagnosis/Problems (1) Acute respiratory failure due to COVID-19 Status: Acute (2) Pneumonia due to COVID-19 virus Status: Acute (3) HTN (hypertension) Status: Chronic Qualifiers: Hypertension type: essential hypertension Qualified Codes: I10 - Essential (primary) hypertension (4) Hypothyroidism Status: Chronic (5) Morbid obesity Status: Chronic Clinical Quality Measures DVT/VTE Risk/Contraindication: Risk Factor Score Per Nursin RFS Level Per Nursing on Admit: 4+=Very High MELLY SCALES MD Jun 04, 2020 16:03
[2020-06-04 16:40] VITALS: BP 141/77
[2020-06-04] MEDS: REMDESIVIR 100 MG/NS 250 ML IVPB IV SCH ×2 (17:22)
[2020-06-05 00:15] VITALS: BP 116/56
[2020-06-05] MEDS: RT-ALBUTEROL INHALER HFA (VENTOLIN HFA) 18 GM IH SCH ×3 (02:45→14:24)
[2020-06-05] MEDS: DOXYCYCLINE 100 MG (VIBRAMYCIN) TABLET PO SCH ×2 (06:23→17:26)
[2020-06-05] MEDS: ENOXAPARIN 40 MG/0.4 ML (LOVENOX) SYR SC SCH ×2 (06:23→17:26)
[2020-06-05] MEDS: inSUlin ASPART (NovoLOG) 1 UNIT/0.01 ML (CHARGE PER UNIT) SC SCH ×3 (06:23→17:33)
[2020-06-05] MEDS: LEVOTHYROXINE 125 MCG (LEVOTHROID) TABLET PO SCH ×2 (06:23→17:27)
[2020-06-05 07:18] LABS: ALANINE AMINOTRANSFERASE 27 U/L (0-55); ALBUMIN 3.5 GM/DL (3.2-4.5); ALKALINE PHOSPHATASE 70 U/L (40-136); BILIRUBIN,TOTAL 0.3 MG/DL (0.1-1.0); BUN/CREATININE RATIO 22; CALCIUM 8.7 MG/DL (8.5-10.1); CARBON DIOXIDE 23 MMOL/L (21-32); CHLORIDE 108 MMOL/L (98-107); CREATININE SERUM 0.78 MG/DL (0.60-1.30); GFR ESTIMATED > 60; GLUCOSE 93 MG/DL (70-105); SODIUM 141 MMOL/L (135-145); TOTAL PROTEIN 6.5 GM/DL (6.4-8.2)
[2020-06-05 07:23] LABS: HEMOGLOBIN 13.5 g/dL (11.5-16.0); MEAN PLATELET VOLUME 10.4 fL (9.0-12.2); WHITE BLOOD COUNT 5.5 10^3/uL (4.3-11.0)
[2020-06-05] MEDS: dexAMETHasone 6 MG TAB (DECADRON) PO SCH (08:18)
[2020-06-05 08:30] VITALS: BP 133/64
--- NOTE | 2020-06-05 15:44 | Discharge Summary ---
Discharge Summary Hospital Course Was the Problem List Reviewed?: Yes Problems/Dx: (1) Acute respiratory failure due to COVID-19 Status: Acute (2) Pneumonia due to COVID-19 virus Status: Acute (3) HTN (hypertension) Status: Chronic Qualifiers: Qualified Codes: I10 - Essential (primary) hypertension (4) Hypothyroidism Status: Chronic (5) Morbid obesity Status: Chronic Hospital Course Date of Admission: May 31, 2020 at 16:28 Admission Diagnosis : Family Physician/Provider: Date of Discharge: 06/05/20 Discharge Diagnosis: [ ] Hospital Course: [ ] Labs and Pending Lab Test: Laboratory Tests 06/04/20 16:44: Glucometer 143H 06/04/20 21:28: Glucometer 106 06/05/20 06:00: Glucometer 98 06/05/20 06:18: Sodium Level 141, Potassium Level 4.0, Chloride Level 108H, Carbon Dioxide Level 23, Anion Gap 10, Blood Urea Nitrogen 17, Creatinine 0.78, Estimat Glomerular Filtration Rate > 60, BUN/Creatinine Ratio 22, Glucose Level 93, Calcium Level 8.7, Corrected Calcium 9.1, Total Bilirubin 0.3, Aspartate Amino Transf (AST/SGOT) 21, Alanine Aminotransferase (ALT/SGPT) 27, Alkaline Phosphatase 70, Total Protein 6.5, Albumin 3.5 06/05/20 07:17: White Blood Count 5.5, Red Blood Count 4.48, Hemoglobin 13.5, Hematocrit 40, Mean Corpuscular Volume 90, Mean Corpuscular Hemoglobin 30, Mean Corpuscular Hemoglobin Concent 34, Red Cell Distribution Width 12.5, Platelet Count 220, Mean Platelet Volume 10.4 06/05/20 11:55: Glucometer 111H Home Meds Active Reported Visine Dry Eye Relief Drop (Peg 400/Hypromellose/Glycerin) 15 Ml Drops 1 Drop OU DAILY PRN Fish Oil 1,000 mg Capsule ([place] 3 Polyunsat Fatty Acids) 1,000 Mg Cap 1,000 Mg PO DAILY Cinnamon (Cinnamon Bark) 500 Mg Capsule 500 Mg PO BID Multi-Vitamin Daily (Multivitamin) 1 Each Tablet 1 Each PO DAILY Calcium (Calcium Carbonate) 500 Mg Tablet 500 Mg PO DAILY Albuterol Sulfate 2.5 Mg/3 Ml Vial.neb 3 Ml INH Q6H PRN Omeprazole 40 Mg Capsule.dr 40 Mg PO DAILY PRN Euthyrox (Levothyroxine Sodium) 125 Mcg Tablet 125 Mcg PO DAILY Dosoquin Tablet (Cholecalciferol (Vitd3)/Vit K2) 1 Each Tablet 1 Each PO DAILY Doxycycline Hyclate 100 Mg Capsule 100 Mg PO BID Assessment/Pt Instructions Take medications as prescribed. You are being set up with oxygen to use with exertion. Return with worsening shortness of breath or if you feel like you are getting worse. Discharge Planning: <30 minutes discharge planning Discharge Instructions Discharge Diet: No Restrictions Activity as Tolerated: Yes Discharge Physical Examination Vital Signs Vital Signs Date Time Temp Pulse Resp B/P (MAP) Pulse Ox O2 Delivery O2 Flow Rate FiO2 06/05/20 14:26 107 96 4.00 87 06/05/20 14:25 Nasal Cannula 06/05/20 08:30 36.6 16 133/64 (87) 06/03/20 15:52 32 General Appearance: No Apparent Distress, Anxious, Obese Respiratory: Lungs Clear, Normal Breath Sounds, No Respiratory Distress Cardiovascular: Regular Rate, Rhythm, No Edema, No Murmur Gastrointestinal: Normal Bowel Sounds, Non Tender, Soft Extremity: Normal Inspection, Non Tender, No Pedal Edema Skin: Normal Color, Warm/Dry Neurologic/Psychiatric: Alert, Oriented x3, No Motor/Sensory Deficits Allergies: Coded Allergies: Penicillins (Verified Allergy, Unknown, 05/31/20) atorvastatin (Verified Allergy, Unknown, 05/31/20) metformin (Verified Allergy, Unknown, 05/31/20) sulfamethoxazole (Verified Allergy, Unknown, 05/31/20) trimethoprim (Verified Allergy, Unknown, 05/31/20) Discharge Summary Date of Admission May 31, 2020 at 16:28 Date of Discharge Discharge Date: Jun 05, 2020 Discharge Time: 15:41 Admission Diagnosis Acute hypoxic respiratory failure due to COVID19 Discharge Diagnosis Acute respiratory failure due to COVID-19 (1) Acute respiratory failure due to COVID-19 Status: Acute (2) Pneumonia due to COVID-19 virus Status: Acute (3) HTN (hypertension) Status: Chronic Qualifiers: Qualified Codes: I10 - Essential (primary) hypertension (4) Hypothyroidism Status: Chronic (5) Morbid obesity Status: Chronic Clinical Quality Measures DVT/VTE Risk/Contraindication: Risk Factor Score Per Nursin RFS Level Per Nursing on Admit: 4+=Very High MELLY SCALES MD Jun 05, 2020 15:44
[2020-06-05 16:08] VITALS: BP 126/68
[2020-06-05 18:55] VITALS: BP 126/68
== END 2020-06-05 18:30 | disposition home or self-care (01) | DRG 177 ==
LOC: ER 15:20 → 4TH 16:28 → EDLOC 16:28
PROVIDERS: ADMIT Family Medicine; ATTEND Internal Medicine
PROC: XW033E5 Introduction of Remdesivir Anti-infective into Peripheral Vein, Percutaneous Approach, New Technology Group 5 (ICD-10-PCS; principal; 2020-06-04)
DX: U07.1 COVID-19 (principal); J96.01 Acute respiratory failure with hypoxia; J12.82 Pneumonia due to coronavirus disease 2019; Z68.41 Body mass index [BMI] 40.0-44.9, adult; E66.01 Morbid (severe) obesity due to excess calories; Z73.0 Burn-out
CPT/HCPCS: 36415; 71045; 71275; 80053; 82962; 84145; 85025; 85027; 85379; 86141; 86900; 86901; 94640; 94664; 94760; 94761